=== PATIENT | male | born 1990 | race Caucasian/White ===

== ENCOUNTER 2021-11-14 03:32 | Emergency (ER) | payer MEDICAID ==
[~2021-11-14] VITALS: Ht 180.3 cm; Wt 90.7 kg
--- NOTE | 2021-11-14 03:42 | NUR ---
DR. WILKINS AT BEDSIDE, MSE IN PROGRESS.
[2021-11-14] MEDS: PROCHLORPERAZINE EDISYLATE 10 MG/2 ML VIAL IV ONE (03:50)
--- NOTE | 2021-11-14 03:54 | NUR ---
LAB AT BEDSIDE.
[2021-11-14] MEDS ORDERED: PROCHLORPERAZINE EDISYLATE 10 MG/2 ML VIAL ONE (03:56)
--- NOTE | 2021-11-14 04:07 | NUR ---
XRAY AT BEDSIDE.
--- NOTE | 2021-11-14 04:10 | NUR ---
MARK CALLED FROM [facility] #[id number].
[2021-11-14 04:33] LABS: HEMATOCRIT 40.8 % (36.7-47.1); MEAN CORPUSCULAR HEMOGLOBIN 30.2 uug (23.8-33.4); MEAN CORPUSCULAR VOLUME 90.2 fL (73.0-96.2); PLATELET COUNT (AUTO) 245 K/uL (152-348)
[2021-11-14 04:41] LABS: ALANINE AMINOTRANSFERASE 52 U/L (16-63); ALKALINE PHOSPHATASE 85 U/L (50-136); ASPARTATE AMINOTRANSFERASE 59 U/L (15-37); BILIRUBIN,DIRECT 0.2 mg/dL (0.0-0.2); BILIRUBIN,TOTAL 0.4 mg/dL (0.2-1.0); CARBON DIOXIDE 29 mmol/L (21-32); CHLORIDE 101 mmol/L (98-107); CREATININE 1.2 mg/dL (0.6-1.3); GLUCOSE 125 mg/dL (74-106); POTASSIUM 3.6 mmol/L (3.5-5.1); TOTAL PROTEIN, SERUM 7.5 g/dL (6.4-8.2); UREA NITROGEN, BLOOD 14 mg/dL (7-18)
[2021-11-14 05:16] LABS: ETHANOL < 3 MG/DL (0-0)
[2021-11-14] MEDS: AZITHROMYCIN IV 500 MG in IV DEXTROSE 5% 250 ML IV ONE (06:08)
[2021-11-14] MEDS ORDERED: AZITHROMYCIN 500MG/ D5W 250ML IVPB **ER PYXIS ONLY IV ONE (06:12)
--- NOTE | 2021-11-14 07:52 | NUR ---
PT IS RESTING IN BED COMFORTABLY. NO S/S OF ACUTE DISTRESS AT THIS TIME. CONTINUE TO MONITOR THE PT.
[2021-11-14] MEDS ORDERED: AZIT250T13 PO (20:13)
[2021-11-14] MEDS: CEFTRIAXONE 1 G in IV DEXTROSE 5% 50 ML IV ONE (20:22)
--- NOTE | 2021-11-14 20:45 | NUR ---
Patient discharged to home in stable condition. Written and verbal after care instructions given. Patient verbalizes understanding of instructions. Stressed follow up or return to ER for worsening s/s. pt ambulatory with stady gait, denies pain.
[2021-11-14 20:48] VITALS: BP 110/70
== END 2021-11-14 20:48 | disposition home or self-care (01) ==
LOC: ER 03:35
DX: T40.411A Poisoning by fentanyl or fentanyl analogs, accidental (unintentional), initial encounter (principal); J18.9 Pneumonia, unspecified organism; R09.02 Hypoxemia; Z59.00 Homelessness unspecified; Z20.822 Contact with and (suspected) exposure to COVID-19; Y92.89 Other specified places as the place of occurrence of the external cause
CPT/HCPCS: 36415; 71045; 80048; 80076; 80320; 85025; 87426; 96365; 96375; 99285; J0456; J0780; A4663; G0480